=== PATIENT | male | born 1945 | race Caucasian/White ===

== ENCOUNTER 2018-12-25 09:48 | Emergency (ER) | payer MEDICARE, OTHER ==
[2018-12-25] MEDS ORDERED: Aspirin 81 MG Tab.Chew PO ONE (10:16)
[2018-12-25] MEDS ORDERED: Furosemide 40 MG/4 ML VIAL IVPUSH ONE (10:16)
[2018-12-25] MEDS ORDERED: Sodium Chloride 0.9% 10 ML Syringe FLUSH PRN (10:16)
--- NOTE | 2018-12-25 10:21 | EDM.PDOC ---
ED HPI GENERAL MEDICAL PROBLEM - General Chief Complaint: Cardiovascular Problem Stated Complaint: ELEVATED LABS/CHEST PAIN Time Seen by Provider: 12/25/18 10:00 Source of Information: Reports: Patient History Limitations: Reports: No Limitations - History of Present Illness INITIAL COMMENTS - FREE TEXT/NARRATIVE: 73-year-old male sent to the ED by his primary care physician from [facility]. Reports 2 days ago developed sudden onset of severe retrosternal chest pain rating up into his throat and a nape of his neck while shoveling snow. He estimates that he was shoveling snow for only 2-3 minutes before the pain came on. He then had to quit shoveling and went in the house and took a minute or 2 for the pain to go away. By history the patient has been suffering unstable angina probably for last 6-9 months. It comes on with exertion even a short walk in the hallway will bring it on and it usually goes away within 30 seconds to a minute of rest. Patient has had several investigations including C's scan ECG stress test in July which proved to be negative. He apparently also passed an ECg stress test. Apparently he had CT of the coronary arteries which was high at 1500. Patient has not had an angiogram. Her previous myocardial infarction. He has been placed on Prilosec for many months for suspect GERD as a cause of his pain and it hasn't changed his pain at all. He also had a complete workup for his gallbladder which proved to be negative. This morning his ECG shows evidence of an old anteroseptal myocardial infarction and inferior wall myocardial infarction with no ST segment changes. Occasional unifocal PVCs. Does have a left axis deviation of - 53. QTC is mildly prolonged. At the time he was seen has no pain but he states even a little walk in the [place] will bring the pain on. I.e. acute coronary syndrome/unstable angina. Lab work done at the clinic revealed his troponin is elevated at 0.339 which was positive for recent myocardial infarction. His ECGs done previously suggest an old anteroseptal myocardial infarction. Rest x-ray done today also suggested a small right-sided pleural effusion and the patient states he had a orthopnea the last 2 nights and had to sit up part of the night in the easy chair to get his breath. He does have a nonproductive cough. Usually take aspirin every day but hasn't for a lengthy period of time as they felt it may be causing a gastritis and was stopped. Was also also having associated nosebleeds. He states he can't bring up any sputum with his cough. No hemoptysis. Recently his medications were changed to Protonix 40 mg once daily from Prilosec 20 once daily. Onset: Sudden Onset Date: 12/23/18 (Was shoveling snow 2 days ago when he developed severe retrosternal chest pain radiating up into his neck and nape of neck. Estimated good 2-5 minutes.) Duration: Minutes: Location: Reports: Chest (Pain was central chest rating up into the neck and nape of neck. No pain at the time was seen in the examining ER.) Quality: Reports: Other Severity: Moderate (Describes the pain as a deep pressure squeezing sensation.) Improves with: Reports: Rest Worsens with: Reports: Other Context: Reports: Activity (Exertion even walking down the hallway will bring it on he states.). Denies: Exercise, Lifting, Sick Contact, Trauma, Other Associated Symptoms: Reports: Chest Pain (Coughing but can't bring up any sputum.), Cough, Malaise. Denies: No Other Symptoms, Confusion, cough w sputum , Diaphoresis, Fever/Chills, Headaches, Loss of Appetite, Nausea/Vomiting, Rash , Seizure, Shortness of Breath, Syncope, Weakness Treatments APPEALS RN: Reports: Other (see below) (9.) - Related Data Allergies Allergy/AdvReac Type Severity Reaction Status Date / Time No Known Allergies Allergy Verified 12/25/18 09:54 Home Meds: Home Meds Lisinopril 5 mg PO DAILY 09/13/18 [History] Tamsulosin [Flomax] 0.4 mg PO DAILY 09/13/18 [History] Ca Carbonate/Mag Oxide/Vit C [Localnesium-C Tablet] 1 tab PO DAILY 12/25/18 [ History] Multivitamin [Multiple Vitamins] 1 tab PO DAILY 12/25/18 [History] Omeprazole 20 mg PO BID 12/25/18 [History] Past Medical History Cardiovascular History: Reports: High Cholesterol, Hypertension Genitourinary History: Reports: Other (See Below) Other Genitourinary History: prostate CA Social & Family History - Caffeine Use Caffeine Use: Reports: Coffee, Tea - Living Situation & Occupation Living situation: Reports: Occupation: Retired ED ROS GENERAL - Review of Systems Review Of Systems: See Below Constitutional: Reports: Malaise, Fatigue. Denies: Fever, Chills HEENT: Reports: Glasses Respiratory: Reports: Shortness of Breath, Cough. Denies: Wheezing, Pleuritic Chest Pain (Last 2 days with associated orthopnea and PND.) Cardiovascular: Reports: Chest Pain (Can get up any sputum. Minimal central chest pains compound unstable angina dating back 8 or 9 months.), Orthopnea. Denies: Blood Pressure Problem, Claudication Endocrine: Reports: Fatigue GI/Abdominal: Reports: Other (History of GERD.) : Reports: Frequency, Other (Nocturia 2-3 times nightly.) Musculoskeletal: Reports: Back Pain, Joint Pain (Biceps neck at times.) Skin: Reports: No Symptoms Neurological: Reports: No Symptoms Psychiatric: Reports: No Symptoms Hematologic/Lymphatic: Reports: No Symptoms Immunologic: Reports: No Symptoms ED EXAM, GENERAL - Physical Exam Exam: See Below Exam Limited By: No Limitations General Appearance: Alert, WD/WN, No Apparent Distress, Other (Vital signs show temperature is 36.2. Pulse 102 in sinus respiratory of 16 sats of 94% on room air. BP 121/72.) Eye Exam: Bilateral Eye: Normal Inspection, PERRL Throat/Mouth: Normal Inspection, Normal Lips, Normal Oropharynx Head: Atraumatic, Normocephalic Neck: Normal Inspection, Supple, Full Range of Motion, Tender Lateral, Other ( No obvious JVD.). No: Carotid Bruit, Lymphadenopathy (L), Lymphadenopathy (R) Respiratory/Chest: No Respiratory Distress, Lungs Clear, Normal Breath Sounds, No Accessory Muscle Use, Chest Non-Tender Cardiovascular: Regular Rate, Rhythm, No Edema, No Gallop, No Murmur, No Rub Peripheral Pulses: 2+: Posterior Tibial (L), Posterior Tibial (R), Dorsalis Pedis (L), Dorsalis Pedis (R) GI/Abdominal: Normal Bowel Sounds, Soft, Non-Tender, No Organomegaly, No Abnormal Bruit, No Mass, Pelvis Stable, Other (Male) Exam: No Hernia (No surgical scars) Back Exam: Normal Inspection, Full Range of Motion. No: CVA Tenderness (L), CVA Tenderness (R) Extremities: Normal Inspection, Normal Range of Motion, Non-Tender, No Pedal Edema Neurological: Alert, Oriented, CN II-XII Intact, Normal Cognition, Normal Gait Psychiatric: Normal Affect, Anxious Skin Exam: Warm, Dry, Intact, Normal Color, No Rash EKG INTERPRETATION EKG Date: 12/25/18 Time: 09:54 Rhythm: Other (Sinus tachycardia) Rate (Beats/Min): 102 (Occasional unifocal PVCs) [place]: LAD-Left [place] Deviation (-53) P-Wave: Enlarged (Mildly enlarged consider left atrial hypertrophy) QRS: Other (There are Q waves in V1 and V2 and near Q-wave in V3 suggest an old anteroseptal myocardial infarction. There are also Q waves in leads II, III, and F aVF compatible with inferior wall myocardial infarction.) ST-T: Other (There is mild T-wave inversion in leads 1 and aVL with slight ST segment depression in V5 and V6.) QT: Prolonged (Mildly prolonged.) EKG Interpretation Comments: Abnormal ECG Course - Vital Signs Last Recorded V/S: Last Vital Signs Temp 36.2 C 12/25/18 09:55 Pulse 102 H 12/25/18 09:55 Resp 16 12/25/18 09:55 BP 121/72 12/25/18 09:55 Pulse Ox 94 L 12/25/18 09:55 - Orders/Labs/Meds Orders: Active Orders 24 hr Category Date Time Status EKG Documentation Completion [RC] STAT Care 12/25/18 09:57 Active Peripheral IV Care [RC] . DIRECTED Care 12/25/18 10:17 Active Heparin Sodium/D5W [Heparin 25,000 Units in D5W 500 ML] Med 12/25/18 11:30 Ordered 25,000 units in 500 ml IV TITRATE Nitroglycerin/D5W [Nitroglycerin 25 MG/D5W 250 ML] Med 12/25/18 10:30 Active 25 mg in 250 ml IV TITRATE Sodium Chloride 0.9% [Saline Flush] Med 12/25/18 10:16 Active 10 ml FLUSH ASDIRECTED PRN Peripheral IV Insertion Adult [OM.PC] Stat Oth 12/25/18 10:17 Ordered Medication Orders Nitroglycerin/Dextrose (Nitroglycerin 25 Mg/D5w 250 Ml) 25 mg in 250 mls @ 6 mls/hr IV TITRATE GAYLA; Protocol Last Admin: 12/25/18 10:47 Dose: 10 mcg/min, 6 mls/hr Heparin Sodium/Dextrose (Heparin 25,000 Units In D5w 500 Ml) 25,000 units in 500 mls @ 20 mls/hr IV TITRATE GAYLA Sodium Chloride (Saline Flush) 10 ml FLUSH ASDIRECTED PRN PRN Reason: Keep Vein Open Last Admin: 12/25/18 10:49 Dose: 10 ml Labs: Laboratory Tests 12/25/18 12/25/18 Range/Units 10:15 10:15 Magnesium 2.1 (1.8-2.4) mg/dl NT-Pro-B Natriuret Pep 2597 H (0-450) pg/mL Meds: Medications Generic Name Dose Route Start Last Admin Trade Name Mateo PRN Reason Stop Dose Admin Nitroglycerin/Dextrose 25 mg in 250 mls @ 6 mls/hr 12/25/18 10:30 12/25/18 10 :47 Nitroglycerin 25 Mg/D5w 250 Ml IV 10 mcg/min TITRATE GAYLA 6 mls/hr Administration Protocol 10 MCG/MIN Heparin Sodium/Dextrose 25,000 units in 500 mls @ 20 mls/hr 12/25/18 11:30 Heparin 25,000 Units In D5w 500 Ml IV TITRATE GAYLA 1,000 UNITS/HR Sodium Chloride 10 ml 12/25/18 10:16 12/25/18 10:49 Saline Flush FLUSH 10 ml ASDIRECTED PRN Administration Keep Vein Open Discontinued Medications Generic Name Dose Route Start Last Admin Trade Name Mateo PRN Reason Stop Dose Admin Aspirin 324 mg 12/25/18 10:16 12/25/18 10:49 Aspirin PO 12/25/18 10:17 324 mg ONETIME ONE Administration Furosemide 40 mg 12/25/18 10:16 12/25/18 10:47 Lasix IVPUSH 12/25/18 10:17 40 mg NOW ONE Administration Heparin Sodium (Porcine) 4,000 units 12/25/18 11:26 Heparin Sodium IVPUSH 12/25/18 11:27 .BOLUS ONE Heparin Sodium (Porcine) Confirm 12/25/18 11:29 Heparin Sodium Administered 12/25/18 11:30 Dose 5,000 units .ROUTE .STK-MED ONE Heparin Sodium/Dextrose Confirm 12/25/18 11:29 Heparin 25,000 Units In D5w 500 Ml Administered 12/25/18 11:30 Dose 500 mls @ as directed .ROUTE .K-MED ONE - Radiology Interpretation Free Text/Narrative:: 73-year-old male sent to the ED from [facility] where he was worked up by this am. By history the patient has an 8-9 month history of gradually worsening angina pectoris or unstable angina. He has had normal investigations in this regard with a normal Lexiscan scan done in July of this year. 2 days ago he was shoveling snow for about 2 minutes when he developed severe retrosternal chest pain rating up into his throat neck and nape of neck. The pain dissipated upon stopping activity after about 3-5 minutes. He states is been quite typical of his angina. He states he can reduce the knee and degenerative chest pain by walking briskly down the hallway. Over the last 2 days he is developed increased shortness of breath during the night and had to sit up in the easy chair the last 2 nights particularly last night. Has a cough but unable to cough up any sputum. Sedations done at the clinic revealed a small right-sided pleural effusion mild cardiomegaly. Diffuse vascular congestion pattern on ECG as reported by the radiologist. His troponin I was elevated at 0.339. Upon arrival the patient is chest pain-free. Vital Signs are stable. History suggests developing congestive heart failure. I will have a BMP and a serum magnesium added to labs provided by the clinic. He will have a IV nitro drip started at 10 mcg/m. He will receive 4 baby aspirins chewed. He will be given Lasix 40 mg IV. - Re-Assessments/Exams Free Text/Narrative Re-Assessment/Exam: 12/25/18 11:10: BNP did come back elevated at 2597. Serum magnesium is 2.1. She' ll be started on heparin drip at 1000 units an hour after 4000 unit bolus. 12/25/18 11:25: Spoke with trade union secretary hospitalist Dr. Vasques at [facility] in [facility] and she has accepted care of this patient. He will be transfused that facility by ground ambulance. He notices his recent myocardial infarction with developing congestive heart failure. Suspect recent in acute inferior wall myocardial infarction with Q-wave development compared to other ECGs in leads II , III, and F aVF. There also may be some lateral wall involvement or reciprocal changes. Departure - Departure Time of Disposition: 11:42 Disposition: Home, Self-Care 01 Condition: Fair Clinical Impression: Elevated troponin I measurement, Recent myocardial infarction of inferior wall Congestive heart failure Qualifiers: Heart failure type: unspecified Heart failure chronicity: acute Qualified Code( s): I50.9 - Heart failure, unspecified Referrals: Jameel Santana MD [Primary Care Provider] - Forms: ED Department Discharge - My Orders Last 24 Hours: My Active Orders 12/25/18 09:57 EKG Documentation Completion [RC] STAT 12/25/18 10:16 Sodium Chloride 0.9% [Saline Flush] 10 ml FLUSH ASDIRECTED PRN 12/25/18 10:17 Peripheral IV Care [RC] . DIRECTED Peripheral IV Insertion Adult [OM.PC] Stat 12/25/18 10:30 Nitroglycerin/D5W [Nitroglycerin 25 MG/D5W 250 ML] 25 mg in 250 ml IV TITRATE 12/25/18 11:30 Heparin Sodium/D5W [Heparin 25,000 Units in D5W 500 ML] 25,000 units in 500 ml IV TITRATE - Assessment/Plan Last 24 Hours: My Active Orders 12/25/18 09:57 EKG Documentation Completion [RC] STAT 12/25/18 10:16 Sodium Chloride 0.9% [Saline Flush] 10 ml FLUSH ASDIRECTED PRN 12/25/18 10:17 Peripheral IV Care [RC] . DIRECTED Peripheral IV Insertion Adult [OM.PC] Stat 12/25/18 10:30 Nitroglycerin/D5W [Nitroglycerin 25 MG/D5W 250 ML] 25 mg in 250 ml IV TITRATE 12/25/18 11:30 Heparin Sodium/D5W [Heparin 25,000 Units in D5W 500 ML] 25,000 units in 500 ml IV TITRATE
[2018-12-25] MEDS ORDERED: Nitroglycerin/D5W 25 MG/250 ML BOTTLE IV SCH (10:30)
[2018-12-25] MEDS ORDERED: Heparin Sodium 5,000 Units/ML Vial IVPUSH ONE (11:26)
[2018-12-25] MEDS ORDERED: Heparin Sodium/D5W 500 ML ONE (11:29)
[2018-12-25] MEDS ORDERED: Heparin Sodium 5,000 Units/ML Vial ONE (11:29)
[2018-12-25] MEDS ORDERED: Heparin Sodium/D5W 25,000 UNITS/500 ML BAG IV SCH (11:30)
== END 2018-12-25 11:48 | disposition home or self-care (01) ==
LOC: JD.ED 09:48
DX: I21.19 ST elevation (STEMI) myocardial infarction involving other coronary artery of inferior wall (principal); I11.0 Hypertensive heart disease with heart failure; I50.9 Heart failure, unspecified; R79.89 Other specified abnormal findings of blood chemistry; E78.00 Pure hypercholesterolemia, unspecified; Z79.899 Other long term (current) drug therapy
CPT/HCPCS: 36415; 83735; 83880; 93005; 96374; 96375; 99285; A9270; J1644; J1940; J3490; 93010

== ENCOUNTER 2020-04-08 08:30 | Emergency (ER) | payer MEDICARE, OTHER ==
--- NOTE | 2020-04-08 08:57 | EDM.PDOC ---
ED HPI GENERAL MEDICAL PROBLEM - General Chief Complaint: General Stated Complaint: POSS INFECTION POST SURGERY Time Seen by Provider: 04/08/20 08:37 Source of Information: Reports: Patient History Limitations: Reports: No Limitations - History of Present Illness INITIAL COMMENTS - FREE TEXT/NARRATIVE: The patient presents for a possible infection post circumcision. He had a c ircumcision done [address] Cook. Everything has been going good but yesterday his noticed some greenish drainage on his underwear. They have been doing sponge baths and did not remove the gauze. He has no fever or chills. He has no extra pain. Onset: Gradual Duration: Day(s): Location: Reports: Other (Penis) Quality: Reports: Sharp Severity: Mild Improves with: Reports: None Worsens with: Reports: None Associated Symptoms: Reports: No Other Symptoms - Related Data Allergies Allergy/AdvReac Type Severity Reaction Status Date / Time No Known Allergies Allergy Verified 04/08/20 08:45 Home Meds: Home Meds Tamsulosin [Flomax] 0.4 mg PO DAILY 09/13/18 [History] lisinopriL [Lisinopril] 5 mg PO DAILY 09/13/18 [History] Calcium Carb/Mag Oxide/Vit C [Localnesium-C Tablet] 1 tab PO DAILY 12/25/18 [History] Multivitamin [Multiple Vitamins] 1 tab PO DAILY 12/25/18 [History] Omeprazole 20 mg PO BID 12/25/18 [History] cephALEXin [Keflex] 500 mg PO QID #40 cap 04/08/20 [Rx] Past Medical History Cardiovascular History: Reports: High Cholesterol, Hypertension Genitourinary History: Reports: Other (See Below) Other Genitourinary History: prostate CA Social & Family History - Tobacco Use Tobacco Use Status *Q: Former Tobacco User Packs/Tins Daily: 1 Used Tobacco, but Quit: Yes Month/Year Tobacco Last Used: 02/2000 - Caffeine Use Caffeine Use: Reports: Coffee, Tea - Recreational Drug Use Recreational Drug Use: No - Living Situation & Occupation Living situation: Reports: Occupation: Retired ED ROS GENERAL - Review of Systems Review Of Systems: See Below Constitutional: Reports: No Symptoms HEENT: Reports: No Symptoms Respiratory: Reports: No Symptoms Cardiovascular: Reports: No Symptoms Endocrine: Reports: No Symptoms GI/Abdominal: Reports: No Symptoms : Reports: Other (Irritation and drainage) Musculoskeletal: Reports: No Symptoms ED EXAM, GENERAL - Physical Exam Exam: See Below Exam Limited By: No Limitations General Appearance: Alert, No Apparent Distress Ears: Normal External Exam Nose: Normal Inspection Head: Atraumatic, Normocephalic Neck: Normal Inspection Respiratory/Chest: No Respiratory Distress (Male) Exam: Other (Xiriphorm gauze was still on the wound. There is some erythema of the glans of the penis with some drainage at the base of the head of the penis. There is some yellowish drainge from the head of his penis.) Course - Vital Signs Last Recorded V/S: Last Vital Signs Temp 97 F 04/08/20 08:38 Pulse 76 04/08/20 08:38 Resp 16 04/08/20 08:38 BP 154/82 H 04/08/20 08:38 Pulse Ox 99 04/08/20 08:38 - Re-Assessments/Exams Free Text/Narrative Re-Assessment/Exam: 04/08/20 08:[address] Cook and he was disappointed that the patient did not remove his gauze and that was the problem. He wants him on some antibiotics and local wound care. Departure - Departure Time of Disposition: 09:25 Disposition: Home, Self-Care 01 Condition: Good Clinical Impression: Postoperative wound infection - Discharge Information *PRESCRIPTION DRUG MONITORING PROGRAM REVIEWED*: Not Applicable *COPY OF PRESCRIPTION DRUG MONITORING REPORT IN PATIENT ADE: Not Applicable Prescriptions: cephALEXin [Keflex] 500 mg PO QID #40 cap Referrals: Jameel Santana MD [Primary Care Provider] - Fausto Cook MD [Ordering Only Provider] - 1 Week Forms: ED Department Discharge Additional Instructions: Take the keflex 4 times per day for 10 days. Put some soap in a warm bath and sit in it a couple times per day and clean your penis. Put antibiotic ointment after. Follow up with Dr Cook within a week. Please return if you are worse such as fever, chills, more swelling, pain or drainage. Sepsis Event Note (ED) - Evaluation Sepsis Screening Result: No Definite Risk - Focused Exam Vital Signs: Vital Signs Temp Pulse Resp BP Pulse Ox 04/08/20 08:38 97 F 76 16 154/82 H 99
== END 2020-04-08 09:36 | disposition home or self-care (01) ==
LOC: JD.ED 08:30
DX: T81.49XA Infection following a procedure, other surgical site, initial encounter (principal); I10 Essential (primary) hypertension; Z79.899 Other long term (current) drug therapy; Z87.891 Personal history of nicotine dependence
CPT/HCPCS: 99283

== ENCOUNTER 2021-11-29 18:34 | Emergency (ER) | payer MEDICARE, OTHER ==
[2021-11-29] MEDS ORDERED: Ondansetron 4 MG/2 ML SDV IVPUSH ONE (19:17)
[2021-11-29] MEDS ORDERED: Sodium Chloride 0.9% 10 ML Syringe FLUSH PRN (19:17)
[2021-11-29] MEDS ORDERED: Ketorolac 15 MG/ML SDV IVPUSH ONE (19:19)
[2021-11-29] MEDS ORDERED: HYDROmorphone 0.5 MG/0.5 ML Syringe IVPUSH ONE (19:19)
[2021-11-29] MEDS ORDERED: Sodium Chloride 0.9% 1,000 ML IV SCH (19:30)
[2021-11-29 20:11] LABS: ESTIMATED GFR 77 mL/min (>60)
== END 2021-11-29 21:35 | disposition home or self-care (01) ==
LOC: JD.ED 18:34
DX: I71.43 Infrarenal abdominal aortic aneurysm, without rupture (principal); I71.02 Dissection of abdominal aorta; K80.20 Calculus of gallbladder without cholecystitis without obstruction; N20.2 Calculus of kidney with calculus of ureter; E78.00 Pure hypercholesterolemia, unspecified; I10 Essential (primary) hypertension; Z79.899 Other long term (current) drug therapy
CPT/HCPCS: 36415; 74176; 80053; 81001; 83690; 85025; 96361; 96374; 96375; 99284; J1170; J1885; J2405

== ENCOUNTER 2024-05-05 17:04 | Emergency (ER) | payer MEDICARE, OTHER ==
[2024-05-05 18:03] LABS: APPEARANCE,URINE CLEAR (Clear); BILIRUBIN,URINE NEGATIVE (Negative); COLOR,URINE PINK (Yellow); GLUCOSE,URINE NEGATIVE (Negative); KETONES,URINE NEGATIVE (Negative); LEUKOCYTE ESTERASE,URINE NEGATIVE (Negative); NITRITE,URINE NEGATIVE (Negative); OCCULT BLOOD,URINE 3+ (Negative); PROTEIN,URINE 2+ (Negative); UROBILINOGEN,URINE 0.2 (0.2-1.0)
[2024-05-05 18:44] LABS: BACTERIA,URINE FEW /hpf (FEW); EPITHELIAL CELLS,URINE 0-5 /hpf (0-5); MUCUS,URINE NOT SEEN /hpf (FEW); RBC,URINE TOO NUMEROUS TO CNT /hpf (0-5); WBC,URINE 0-5 /hpf (0-5)
== END 2024-05-05 19:35 | disposition home or self-care (01) ==
LOC: JD.ED 17:04
DX: K57.30 Diverticulosis of large intestine without perforation or abscess without bleeding (principal); I71.40 Abdominal aortic aneurysm, without rupture, unspecified; N20.2 Calculus of kidney with calculus of ureter; I10 Essential (primary) hypertension; E78.00 Pure hypercholesterolemia, unspecified; Z79.02 Long term (current) use of antithrombotics/antiplatelets; Z79.899 Other long term (current) drug therapy; Z95.1 Presence of aortocoronary bypass graft
CPT/HCPCS: 74176; 74176-26; 81001; 99284